=== PATIENT | male | born 1955 | race African-American/Black ===

== ENCOUNTER 2016-12-06 03:40 | Emergency (ER) | payer BC ==
[~2016-12-06] VITALS: Ht 172.7 cm; Wt 123.0 kg
[2016-12-06] MEDS ORDERED: LORATADINE10 M2 PO (05:11)
[2016-12-06 05:15] VITALS: BP 169/95
== END 2016-12-06 05:16 | disposition home or self-care (01) ==
LOC: EME 03:40
DX: J02.9 Acute pharyngitis, unspecified (principal); R49.0 Dysphonia; J34.89 Other specified disorders of nose and nasal sinuses
CPT/HCPCS: 87651 90; 99281; 99283

== ENCOUNTER 2017-10-26 08:47 | Emergency (ER) | payer BC ==
[~2017-10-26] VITALS: Ht 172.7 cm; Wt 116.2 kg
[~2017-10-26 08:47] MED LIST: LORATADINE10 M2 PO
[2017-10-26 10:07] LABS: HEMATOCRIT 42.1 % (38.0-50.0); HEMOGLOBIN 14.1 G/DL (12.5-16.6); MCH 29.9 PG (29.0-34.0); MCHC 33.5 G/DL (30.0-36.0); MCV 89.2 FL (86-99); PLATELET COUNT 239 K/uL (156-360); RBC DIS.WIDTH-CV 14.1 % (11.8-14.6); RBC DIS.WIDTH-SD 46.2 % (39-53); RED BLOOD COUNT 4.72 M/uL (4.00-5.50); WHITE BLOOD COUNT 4.4 K/uL (4.1-10.2)
[2017-10-26 10:19] LABS: CHLORIDE 108 mEq/L (99-109); POTASSIUM 4.1 mEq/L (3.7-5.4); SODIUM 140 mEq/L (136-147)
[2017-10-26 10:20] LABS: GLUCOSE 122 mg/dL (70-99)
[2017-10-26 10:24] LABS: CREATININE 1.5 mg/dL (0.6-1.3); GFR ESTIMATE (CALCULATED) > 59 mL/min/ (58.99-99999)
[2017-10-26 10:25] LABS: UREA NITROGEN (BUN) 20 mg/dL (9-23)
[2017-10-26 10:32] LABS: TROP-I INTERPRETATION NEGATIVE; TROPONIN-I < 0.01 ng/mL (0.0-0.30)
[2017-10-26 12:05] VITALS: BP 157/93
== END 2017-10-26 12:11 | disposition home or self-care (01) ==
LOC: EME 08:47
PROVIDERS: Emergency Medicine
DX: R00.2 Palpitations (principal); I10 Essential (primary) hypertension; E11.9 Type 2 diabetes mellitus without complications; E78.5 Hyperlipidemia, unspecified; Z79.84 Long term (current) use of oral hypoglycemic drugs; Z88.5 Allergy status to narcotic agent
CPT/HCPCS: 71045; 80048; 84484; 85027; 93005; 99281; 99285